=== PATIENT | female | born 2000 | race African-American/Black ===

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

== ENCOUNTER 2019-03-11 23:25 | Emergency (ER) | payer MEDICAID ==
[~2019-03-11] VITALS: Ht 165.1 cm; Wt 64.0 kg
[~2019-03-11 23:25] MED LIST changes: +AUGMENTIN 500-1 EACH ORAL; +NKM
[2019-03-11 23:35] VITALS: BP 101/62
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
[2019-03-12] MEDS ORDERED: ACETAMINOPHEN325 M1 ORAL (00:27)
[2019-03-12] MEDS ORDERED: IBUPROFEN600 MG ORAL (00:27)
[2019-03-12] MEDS ORDERED: ROBAXIN-750750 MG PO (00:27)
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
[2019-03-12 00:33] VITALS: BP 107/67
--- NOTE | 2019-03-12 00:33 | NUR ---
ER DISCHARGE NOTE: Patient is cleared to be discharged per ERMD, pt is aox4, on room air, with stable vital signs. pt was given dc and prescription instructions, pt was able to verbalize understanding, pt id removed, pt is able to ambulate with steady gait. pt took all belongings.
== END 2019-03-12 00:33 | disposition home or self-care (01) ==
LOC: EMR 23:45
DX: M62.838 Other muscle spasm (principal); Z91.018 Allergy to other foods; S16.1XXA Strain of muscle, fascia and tendon at neck level, initial encounter; V43.52XA Car driver injured in collision with other type car in traffic accident, initial encounter; Y92.481 Parking lot as the place of occurrence of the external cause
CPT/HCPCS: 99282

== ENCOUNTER 2019-08-02 20:19 | Emergency (ER) | payer MEDICAID ==
[~2019-08-02] VITALS: Ht 162.6 cm; Wt 63.0 kg
[~2019-08-02 20:19] MED LIST changes: +ACETAMINOPHEN325 M1 ORAL; +ROBAXIN-750750 MG PO
[2019-08-02 20:35] VITALS: BP 112/82
--- NOTE | 2019-08-02 21:00 | NUR ---
ED Nurse Note: ERMD at bedside.
--- NOTE | 2019-08-02 21:00 | NUR ---
ED Nurse Note: Patient walked in from home d/t nausea, vomiting, and diarrhea x 2 days with mid abdominal pain 6/10. Patient aao x 4 and ambulatory. Patient stable upon assessment.
--- NOTE | 2019-08-02 21:04 | Emergency Room Report ---
History of Present Illness General Chief Complaint: Nausea, Vomiting, and Diarrhea Source: Patient Present Illness [facility] This is a 19-year-old female with no past medical history. She presents with complaint of nausea vomiting and diarrhea. Onset yesterday. Unable keep anything down. Has crampy abdominal pain. Vomiting is nonbloody nonbilious. Diarrhea is watery. She was sent home from work because of this. Denies any other complaint. No fever chills. No cough or congestion. No chest pain. Allergies: Coded Allergies: [place] (Verified Allergy, Unknown, 08/19/15) BANANA (Verified Allergy, Unknown, 03/11/19) Patient History Past Medical History: see triage record, old chart reviewed Past Surgical History: none Pertinent Family History: none Social History: Denies: smoking Last Menstrual Period: 07/11/2019 Now: No Immunizations: other Reviewed Nursing Documentation: PMH: Agreed; PSxH: Agreed Review of Systems Eye: Denies: eye pain, blurred vision ENT: Denies: ear pain, nose congestion, throat swelling Respiratory: Denies: cough, shortness of breath Cardiovascular: Denies: chest pain, palpitations Gastrointestinal: Reports: abdominal pain, diarrhea, nausea, vomiting Musculoskeletal: Denies: back pain, joint pain Skin: Denies: rash Neurological: Denies: headache, numbness Endocrine: Denies: increased thirst, increased urine Hematologic/Lymphatic: Denies: easy bruising All Other Systems: negative except mentioned in HPI Physical Exam Vital Signs Date Time Temp Pulse Resp B/P (MAP) Pulse Ox O2 Delivery O2 Flow Rate FiO2 08/02/19 20:26 98.4 79 16 107/65 (79) 98 Room Air Vitals normal Sp02 EP Interpretation: reviewed, normal General Appearance: well appearing, no apparent distress, alert Head: normocephalic, atraumatic Eyes: bilateral eye PERRL, bilateral eye EOMI ENT: hearing grossly normal, normal pharynx Neck: full range of motion, supple, no meningismus Respiratory: chest non-tender, lungs clear, normal breath sounds Cardiovascular #1: regular rate, rhythm, no murmur Gastrointestinal: normal bowel sounds, non tender, no mass, no organomegaly, no bruit, non-distended Musculoskeletal: back normal, normal range of motion, gait/station normal Psychiatric: mood/affect normal Medical Decision Making Diagnostic Impression: Primary Impression: Nausea, vomiting, and diarrhea ER Course Patient with nausea vomiting and diarrhea. Most likely viral gastroenteritis prevalence in the community currently. No evidence of an acute abdomen. Patient felt better. Discharged home. Last Vital Signs Date Time Temp Pulse Resp B/P (MAP) Pulse Ox O2 Delivery O2 Flow Rate FiO2 08/02/19 20:26 98.4 79 16 107/65 (79) 98 Room Air Status: improved Disposition: HOME, SELF-CARE Condition: Stable Scripts Ondansetron (Zofran) 4 Mg Tablet 4 MG ORAL Q6H PRN for Nausea & Vomiting, #10 TAB 0 Refills Prov: Abraham Sanchez MD 08/02/19 Ibuprofen* (MOTRIN*) 600 Mg Tablet 600 MG ORAL THREE TIMES A DAY, #30 TAB 0 Refills Prov: Abraham Sanchez MD 08/02/19 Additional Instructions: Increase fluids. Advance diet as tolerated. Follow-up with your doctor in 2 to 3 days if not better. Return if worse. Abraham Sanchez MD Aug 02, 2019 21:04
[2019-08-02] MEDS ORDERED: Ketorolac 30mg Inj IV ONE (21:15)
[2019-08-02 21:42] LABS: BASOPHILS % (AUTO) 1.3 % (0.0-2.0); EOSINOPHILS % (AUTO) 1.5 % (0.0-3.0); HEMATOCRIT 34.4 % (37.0-47.0); HEMOGLOBIN 10.9 G/DL (12.0-16.0); MEAN CORPUSCULAR VOLUME 74 FL (80-99); MONOCYTES % (AUTO) 6.2 % (1.0-10.0); PLATELET COUNT 296 K/UL (150-450); RED BLOOD COUNT 4.66 M/UL (4.20-5.40); RED CELL DISTRIBUTION WIDTH 13.6 % (11.6-14.8); WHITE BLOOD COUNT 8.8 K/UL (4.8-10.8)
[2019-08-02 21:45] LABS: APPEARANCE,URINE CLEAR; BILIRUBIN, URINE NEGATIVE (NEGATIVE); GLUCOSE, URINE (UA) NEGATIVE (NEGATIVE); KETONES,URINE 3+ (NEGATIVE); LEUKOCYTE ESTERASE ,URINE NEGATIVE (NEGATIVE); NITRITE,URINE NEGATIVE (NEGATIVE); PH,URINE 7 (4.5-8.0); PROTEIN,URINE NEGATIVE (NEGATIVE); UROBILINOGEN,URINE NORMAL MG/DL (0.0-1.0)
[2019-08-02 21:46] LABS: COLOR,URINE YELLOW
[2019-08-02 21:50] LABS: ANION GAP 11 mmol/L (5-15); BLOOD UREA NITROGEN 14 mg/dL (7-18); CALCIUM 9.6 MG/DL (8.5-10.1); CARBON DIOXIDE 26 MMOL/L (21-32); CHLORIDE 103 MMOL/L (98-107); CREATININE 0.7 MG/DL (0.55-1.30); POTASSIUM 3.4 MMOL/L (3.5-5.1); SODIUM 139 MMOL/L (136-145)
[2019-08-02 21:54] LABS: ALANINE AMINOTRANSFERASE 20 U/L (12-78); ALBUMIN 4.2 G/DL (3.4-5.0); ALKALINE PHOSPHATASE 56 U/L (46-116); ASPARTATE AMINO TRANSFERASE 16 U/L (15-37)
[2019-08-02] MEDS ORDERED: ZOFRAN4 MG ORAL (22:17)
[2019-08-02] MEDS ORDERED: IBUPROFEN600 MG ORAL (22:17)
[2019-08-02 22:30] VITALS: BP 120/75
--- NOTE | 2019-08-02 22:30 | NUR ---
ER DISCHARGE NOTE: Patient is cleared to be discharged per ERMD, pt is aox4, on room air, with stable vital signs. pt was given dc and prescription instructions, pt was able to verbalize understanding, pt id band and iv site removed without complications. pt is able to ambulate with steady gait. pt took all belongings. pt stable upon discharge.
== END 2019-08-02 22:30 | disposition home or self-care (01) ==
LOC: EMR 21:28
DX: R11.2 Nausea with vomiting, unspecified (principal); R19.7 Diarrhea, unspecified; Z91.018 Allergy to other foods
CPT/HCPCS: 36415; 80053; 81003; 81025; 83690; 85025; 96374; 96375; J1885; J2405; Z7502; 99284

== ENCOUNTER 2020-04-24 06:23 | Emergency (ER) | payer MEDICAID ==
[~2020-04-24] VITALS: Ht 162.6 cm; Wt 65.8 kg
[~2020-04-24 06:23] MED LIST changes: +FIORICET1 EA ORAL; +REGLAN10 MG ORAL; +ZOFRAN4 MG ORAL
--- NOTE | 2020-04-24 06:35 | NUR ---
ED Nurse Note: Patient walked in from home d/t dry cough accompanied by headache with runny nose for 3 days. Patient aao x 4 and ambulatory with steady gait. Patient denies n/v/d and fever. Patient stable during assessment. No acute distress noted.
[2020-04-24 06:37] VITALS: BP 115/72
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
[2020-04-24 08:08] VITALS: BP 112/73
[2020-04-24] MEDS ORDERED: ROBITUSSIN COU237 M2 PO (08:20)
[2020-04-24 08:35] VITALS: BP 112/73
--- NOTE | 2020-04-24 08:35 | NUR ---
ED Nurse Note: Pt cleared by health care Provider for discharge. DC instructions/prescription was given and explained to pt and verbalized understanding of teachings. All medical deviecs such as ID band removed. Pt is AAO x4, ambulatory and left with all personal belongings.
== END 2020-04-24 08:35 | disposition home or self-care (01) ==
LOC: EMR 06:58
DX: J06.9 Acute upper respiratory infection, unspecified (principal); R07.9 Chest pain, unspecified; R51.9 Headache, unspecified; Z91.018 Allergy to other foods
CPT/HCPCS: U0002; Z7502; 99283